=== PATIENT | male | born 1965 | race Caucasian/White ===

== ENCOUNTER 2017-03-18 06:09 | Day surgery (SDC) | payer BC, OTHER ==
[2017-03-18] MEDS: Lactated Ringers 1,000 ML IV SCH ×2 (06:46→09:00)
[2017-03-18] MEDS ORDERED: fentaNYL 100 MCG/2 ML SDV ONE (07:42)
[2017-03-18] MEDS ORDERED: Propofol 200 MG/20 ML SDV ONE (07:43)
[2017-03-18] MEDS ORDERED: Lactated Ringers 1,000 ML ONE (08:06)
[2017-03-18 09:02] VITALS: BP 127/90
--- NOTE | 2017-03-18 11:01 | OR ---
PREOPERATIVE DIAGNOSIS: Screening colonoscopy. POSTOPERATIVE DIAGNOSIS: Moderate-sized cecal polyp removed. PROCEDURE PROPOSED: Total flexible colonoscopy. PROCEDURE DONE: Total flexible colonoscopy with hot snare polypectomy. INDICATION: This is a 51-year-old gentleman referred for screening colonoscopy. He has had 1 previously about eleven years ago and he was thinking they may have removed some polyps. He denies any family history of polyps or colon cancer and he has had no symptomatology. TECHNIQUE: The patient was brought to the endoscopy suite, placed in left lateral decubitus position. He was given propofol MAC anesthesia per [employer]. The flexible video colonoscope was then passed transanally and under visualization advanced to the cecum. In the cecal area, there was a moderate-sized 1 cm polyp removed by hot snare technique and I was able to pull it back with suction, but it did not go through the scope because of its size. I was able to visualize the ascending, transverse and descending colon quite nicely. I then pulled the scope out completely to retrieve the polyp. I then re-scoped him up to about the splenic flexure and further inspection revealed no other abnormalities through the descending, sigmoid and rectal colon. No signs of any colitis or diverticular disease other than a rare occasional diverticular orifice being noted. The scope was then removed. He tolerated the procedure well. FINAL IMPRESSION: 1. Cecal polyp, moderate-sized, removed. 2. Minimal sigmoid diverticular disease. PLAN: The patient will be sent a letter with pathology report. I felt that he should have colonoscopies every 5 years hereafter due to the presence of the polyp and questionable history of previous polyps. SCM: 03/18/2017 08:13:10 MODL: 03/18/2017 10:53:21 /[id number]
--- NOTE | 2017-03-25 08:06 | LETTER ---
03/25/2017 RE: MARIA ANTONIA SMITH : 1965 Dear Aleah Gustavo, The polyp removed from your colon was considered a precancerous polyp, known as a tubulovillous adenoma. There were no worrisome findings within this polyp, but I feel that you should continue to have colonoscopies every 5 years hereafter to make sure you are not forming any new polyps. If you have any further questions, feel free to call. Respectfully,
== END 2017-03-18 09:31 | disposition home or self-care (01) ==
LOC: VM.SDS 06:09
PROVIDERS: ATTEND Surgery
DX: Z12.11 Encounter for screening for malignant neoplasm of colon (principal); K57.30 Diverticulosis of large intestine without perforation or abscess without bleeding
CPT/HCPCS: 45385; J2704; J3010; J7120